=== PATIENT | female | born 1970 | race Caucasian/White ===

== ENCOUNTER → 2016-12-10 | Outpatient (CLI) | payer SELFPAY ==
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
== END | disposition home or self-care (01) ==
LOC: CT 10:59
PROVIDERS: ATTEND Family Medicine
DX: G44.209 Tension-type headache, unspecified, not intractable (principal); V43.52XA Car driver injured in collision with other type car in traffic accident, initial encounter

== ENCOUNTER 2017-12-16 18:08 | Emergency (ER) | payer OTHER, SELFPAY ==
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
[2017-12-16 19:42] VITALS: TEMP 98.2; O2SAT 99
--- NOTE | 2017-12-16 20:16 | RAD ---
EXAM DESCRIPTION: Cervical Spine,3 Views CLINICAL HISTORY: 46 years Female, neck pain COMPARISON: None. FINDINGS: No evidence for an acute fracture of the cervical spine. No subluxation. Mild degenerative disc space narrowing at C5-C6 is demonstrated with mild osteophyte formation. Nonspecific straightening of the normal cervical lordosis is noted. Surrounding soft tissues are unremarkable. IMPRESSION: No evidence for an acute fracture of the cervical spine. Electronically signed by: Arun Back MD 12/16/2017 8:14 PM NETWORK SUPPORT MANAGER
[2017-12-16] MEDS ORDERED: HYDROCOD/APAP 10/325 (ER DISP) # 3 tablets PO ONE (20:30)
[2017-12-16 20:43] VITALS: BP 107/77
== END 2017-12-16 20:43 | disposition home or self-care (01) ==
LOC: ER 18:08
DX: S13.4XXA Sprain of ligaments of cervical spine, initial encounter (principal); R51 Headache; Z88.2 Allergy status to sulfonamides; Z88.6 Allergy status to analgesic agent; V49.49XA Driver injured in collision with other motor vehicles in traffic accident, initial encounter; Y92.410 Unspecified street and highway as the place of occurrence of the external cause

== ENCOUNTER → 2018-04-20 | Outpatient (CLI) | payer BC | LOC: GMAJS 10:33 | PROVIDERS: ATTEND Physician Assistant | DX: R10.31 Right lower quadrant pain (principal) ==

== ENCOUNTER → 2018-04-20 | Outpatient (CLI) | payer OTHER ==
--- NOTE | 2018-04-20 13:11 | CT ---
EXAM DESCRIPTION: Abdoment/Pelvis w/o Contrast CLINICAL HISTORY: 47 years Female, RLQ PAIN COMPARISON: None. TECHNIQUE: CT of the abdomen and pelvis was acquired without IV contrast material. Coronal and sagittal reformations were provided. This exam was performed according to our departmental dose-optimization program, which includes automated exposure control, adjustment of the mA and/or kV according to patient size and/or use of iterative reconstruction technique. CT ABDOMEN FINDINGS: Lung bases: Clear. There is limited evaluation of the solid organs secondary to the lack of intravenous contrast. Liver: Punctate calcified granuloma within the central liver. Gallbladder and biliary: Gallbladder is distended measuring up to 11.1 cm in length and 5.8 cm in diameter. No biliary duct dilatation. No radiographic apparent gallstone. Pancreas: Normal. Spleen: Normal. Kidneys and adrenal glands: Normal. GI tract: Stomach is normal. No small bowel obstruction. Peritoneal cavity: No ascites or free air. Retroperitoneum and lymph nodes: Normal. Vascular: Normal. Musculoskeletal and soft tissues: No acute fracture or aggressive appearing osseous lesion. Soft tissues are unremarkable. CT PELVIS FINDINGS: GI tract: Colon is unremarkable. Fluid-filled appendix is dilated and thickened measuring up to 15 mm in maximal diameter. There is mild periappendiceal stranding but without discrete fluid collection. Urinary bladder: Normal. Uterus and adnexa: Uterus not well defined may be surgically absent or atrophic. IMPRESSION: 1. Acute uncomplicated appendicitis without periappendiceal abscess or intraconal free air. 2. Distended gallbladder which may represent hydropic gallbladder from chronic obstruction. Further evaluation with ultrasound may be obtained if there is suspicion for biliary colic. Additionally, HIDA scan may be of benefit to evaluate for chronic cholecystitis if indicated. Electronically signed by: Mal Lopes MD 04/20/2018 1:08 PM CDT
== END ==
LOC: CT 11:55
PROVIDERS: ATTEND Physician Assistant
DX: K35.890 Other acute appendicitis without perforation or gangrene (principal); K82.9 Disease of gallbladder, unspecified

== ENCOUNTER → 2020-04-03 | Outpatient (CLI) | payer BC | LOC: GMAM 13:18 | PROVIDERS: ATTEND Family Medicine | DX: Z79.899 Other long term (current) drug therapy (principal) ==